=== PATIENT | female | born 1990 ===

== ENCOUNTER 2016-10-15 14:41 | Emergency (ER) | payer OTHER, SELFPAY ==
[2016-10-15 14:58] VITALS: BP 147/70; PULSE 72; RESP 20; TEMP 98.2; O2SAT 98
--- NOTE | 2016-10-15 15:45 | ED PDOC ---
HPI: General Adult Time Seen by Provider: 10/15/16 15:28 Chief Complaint (Nursing): Abdominal Pain Chief Complaint (Provider): vaginal bleeding History Per: Patient History/Exam Limitations: no limitations Additional Complaint(s): 25yo female comes to the ED stating she has not had her period for the past 2 months but has irregular menses. Reports for past 3 days she's had vaginal bleeding with occasional clots. Suspects she is . Also reports lower abdominal pain. Past Medical History Reviewed: Historical Data, Nursing Documentation, Vital Signs Vital Signs: Last Vital Signs Temp 98.2 F 10/15/16 14:56 Pulse 72 10/15/16 14:56 Resp 20 10/15/16 14:56 BP 147/70 10/15/16 14:56 Pulse Ox 98 10/15/16 18:06 - Medical History PMH: No Chronic Diseases - Surgical History Surgical History: No Surg Hx - Family History Family History: States: Unknown Family Hx - Home Medications Home Medications: Ambulatory Orders Medication Instructions Recorded Penicillin VK [Pen-Vee K] 1 tab PO Q6H #30 tab 04/25/14 Naproxen [Naprosyn] 500 mg PO Q6 #30 tablet 10/15/16 - Allergies Allergies/Adverse Reactions: Allergies Allergy/AdvReac Type Severity Reaction Status Date / Time No Known Allergies Allergy Verified 04/25/14 10:51 Review of Systems ROS Statement: Except As Marked, All Systems Reviewed And Found Negative Gastrointestinal: Positive for: Abdominal Pain Genitourinary Female: Positive for: Vaginal Bleeding Physical Exam - Reviewed Nursing Documentation Reviewed: Yes Vital Signs Reviewed: Yes - Physical Exam Appears: Positive for: Well, Non-toxic, No Acute Distress Head Exam: Positive for: ATRAUMATIC, NORMAL INSPECTION, NORMOCEPHALIC Skin: Positive for: Warm, Dry Eye Exam: Positive for: EOMI, PERRL Cardiovascular/Chest: Positive for: Regular Rate, Rhythm Respiratory: Positive for: Normal Breath Sounds. Negative for: Rales, Rhonchi, Wheezing Gastrointestinal/Abdominal: Positive for: Normal Exam, Soft. Negative for: Tenderness Extremity: Positive for: Normal ROM Neurologic/Psych: Positive for: Alert, Oriented - Laboratory Results Result Diagrams: 10/15/16 16:00 10/15/16 16:00 - ECG O2 Sat by Pulse Oximetry: 98 (RA) Pulse Ox Interpretation: Normal Medical Decision Making Medical Decision Makin: Labs, US Transvag ordered. 1700: Pt. feeling well. Told to f/u in [facility] this week for repeat exam and further testing as warranted. Return precuations given. FINDINGS: The uterus measures 7.6 x 4.0 x 5.3 centimeters. The endometrium measures 6 millimeters. The right ovary measures 2.6 x 1.8 x 2.2 centimeters. Left ovary measures 3.1 x 1.7 x 1.9 centimeters. There is no fluid the pelvis. IMPRESSION: Normal exam. Disposition - Clinical Impression Clinical Impression: Dysfunctional uterine bleeding - Disposition [facility] Disposition Time: 17:30 Condition: STABLE Prescriptions: Naproxen [Naprosyn] 500 mg PO Q6 #30 tablet Instructions: Dysfunctional Uterine Bleeding (ED) Print Language: TOGOLESE Additional Comments - Additional Comments Additional Comments: Scribe Attestation Documented by Ry Mancia, acting as a scribe for Bouchra Nina MD. Provider Scribe Attestation All medical record entries made by the Scribe were at my direction and personally dictated by me. I have reviewed the chart and agree that the record accurately reflects my personal performance of the history, physical exam, medical decision making, and the department course for this patient. I have also personally directed, reviewed, and agree with the discharge instructions and disposition.
--- NOTE | 2016-10-15 16:26 | US ---
PROCEDURE: HISTORY: VB with clots COMPARISON: TECHNIQUE: FINDINGS: The uterus measures 7.6 x 4.0 x 5.3 centimeters. The endometrium measures 6 millimeters. The right ovary measures 2.6 x 1.8 x 2.2 centimeters. Left ovary measures 3.1 x 1.7 x 1.9 centimeters. There is no fluid the pelvis. IMPRESSION: Normal exam.
[2016-10-15 16:39] LABS: HEMATOCRIT 38.2 % (34.0-47.0); MEAN CELL VOLUME 86.7 fl (81.0-99.0); MEAN CORPUSCULAR HEMOGLOBIN 30.6 pg (27.0-31.0); MEAN CORPUSCULAR HGB CONC 35.3 g/dL (33.0-37.0); RED CELL DISTRIBUTION WIDTH 12.7 % (11.5-14.5)
[2016-10-15 16:41] LABS: BLOOD UREA NITROGEN 10 mg/dl (7-17); CALCIUM 9.5 mg/dL (8.4-10.2); CARBON DIOXIDE 23 mmol/L (22-30); CHLORIDE 108 mmol/L (98-107); GFR AFRICAN-AMERICAN > 60; GLUCOSE,RANDOM 86 mg/dL (65-105); POTASSIUM 4.2 MMOL/L (3.6-5.0); SODIUM 146 mmol/l (132-148)
== END 2016-10-15 17:53 | disposition home or self-care (01) ==
LOC: H.ER 14:41
DX: N93.8 Other specified abnormal uterine and vaginal bleeding (principal); R10.30 Lower abdominal pain, unspecified

== ENCOUNTER 2017-08-01 08:17 | Emergency (ER) | payer SELFPAY ==
[2017-08-01 08:21] VITALS: BMI 31.6
[2017-08-01 08:22] VITALS: BP 142/69; PULSE 91; RESP 20; TEMP 97.3
[2017-08-01 08:36] VITALS: O2SAT 98
[2017-08-01 09:24] LABS: SQUAMOUS EPITHIAL 21 /hpf (0-5); URINE BACTERIA RARE (<OCC); URINE BILIRUBIN NEGATIVE (NEGATIVE); URINE BLOOD SMALL (NEGATIVE); URINE CLARITY CLOUDY (Clear); URINE COLOR YELLOW (YELLOW); URINE GLUCOSE (UA) NEG (Normal); URINE LEUKOCYTE ESTERASE LARGE Leu/uL (Negative); URINE NITRATE NEGATIVE (NEGATIVE); URINE PROTEIN 30 mg/dL (NEGATIVE); URINE UROBILINOGEN 0.2-1.0 mg/dL (0.2-1.0)
--- NOTE | 2017-08-01 09:38 | ED PDOC ---
HPI: Abdomen Time Seen by Provider: 08/01/17 08:32 Chief Complaint (Nursing): Abdominal Pain Chief Complaint (Provider): Abdominal Pain History Per: Patient History/Exam Limitations: no limitations Onset/Duration Of Symptoms: Other (x 1 week) Current Symptoms Are (Timing): Still Present Additional Complaint(s): Marcio is a 26 year old healthy female who presents to the emergency department complaining of right-sided abdominal pain for the past week. Patient states pain is constant with intermittent exacerbations without obvious colors. Denies nausea or vomiting. Patient states patient is eating well. No urinary complaints , fevers or chills at this time. Denies blood in urine or vaginal discharge. Last menstrual cycle was on July 13. Patient does not take any medications for it. PMD: No Family Provider Past Medical History Reviewed: Historical Data, Nursing Documentation, Vital Signs Vital Signs: Last Vital Signs Temp 97.3 F L 08/01/17 08:22 Pulse 91 H 08/01/17 08:22 Resp 20 08/01/17 08:22 BP 142/69 08/01/17 08:22 Pulse Ox 98 08/01/17 09:54 - Medical History PMH: No Chronic Diseases - Surgical History Surgical History: No Surg Hx - Family History Family History: States: Unknown Family Hx - Social History Current smoker - smoking cessation education provided: No Alcohol: None Drugs: Denies - Home Medications Home Medications: Ambulatory Orders Medication Instructions Recorded Penicillin VK [Pen-Vee K] 1 tab PO Q6H #30 tab 04/25/14 Naproxen [Naprosyn] 500 mg PO Q6 #30 tablet 10/15/16 Sulfamethoxazole/Trimethoprim 1 tab PO BID #14 tab 08/01/17 [Bactrim DS 800 mg-160 mg] - Allergies Allergies/Adverse Reactions: Allergies Allergy/AdvReac Type Severity Reaction Status Date / Time No Known Allergies Allergy Verified 08/01/17 08:31 Review of Systems ROS Statement: Except As Marked, All Systems Reviewed And Found Negative Constitutional: Negative for: Fever, Chills Cardiovascular: Negative for: Chest Pain Gastrointestinal: Positive for: Abdominal Pain (Right lower abdominal pain has mildly progressed to left side) Physical Exam - Reviewed Nursing Documentation Reviewed: Yes Vital Signs Reviewed: Yes - Physical Exam Head Exam: Positive for: ATRAUMATIC, NORMOCEPHALIC Skin: Positive for: Normal Color. Negative for: Rash Eye Exam: Positive for: Other (Sclera is normal) ENT: Positive for: Other (Mucosa is slightly dry) Neck: Positive for: Supple Cardiovascular/Chest: Positive for: Regular Rate, Rhythm Respiratory: Positive for: Normal Breath Sounds (clear) Gastrointestinal/Abdominal: Positive for: Bowel Sounds (Equal in all 4 quadrants ), Tenderness (Both lower quadrants (signficantly on right)) Neurologic/Psych: Positive for: Alert, Oriented - Laboratory Results Result Diagrams: 08/01/17 09:32 08/01/17 09:32 - ECG O2 Sat by Pulse Oximetry: 98 (RA) Pulse Ox Interpretation: Normal Medical Decision Making Medical Decision Making: Time: 08:44 Impression(s): Right Lower Quadrant Pain Differentials include, but not limited to: Gastrointestinal disease, tubal ovarian abscess Plan: - ED Urine - Urine Culture - Urinalysis Time: 09:09 - CMP - CBC - Toradol 30 mg IVP STAT - Pelvis Ultrasound Scribe Attestation: Documented by Darian Wu, acting as a scribe for Georgia Simental MD Provider Scribe Attestation: All medical record entries made by the Scribe were at my direction and personally dictated by me. I have reviewed the chart and agree that the record accurately reflects my personal performance of the history, physical exam, medical decision making, and the department course for this patient. I have also personally directed, reviewed, and agree with the discharge instructions and disposition. 11.30a - patient stable. blood test and ultrasound WNL. UA shows WBC. Will discharge. Disposition - Clinical Impression Clinical Impression: UTI (urinary tract infection) - Patient ED Disposition Is Patient to be Admitted: No Doctor Will See Patient In The: Office Counseled Patient/Family Regarding: Diagnosis, Need For Followup, Rx Given - Disposition Referrals: [facility] [Outside] [facility] [Outside] Disposition: Routine/Home Disposition Time: 11:58 Condition: STABLE Prescriptions: Sulfamethoxazole/Trimethoprim [Bactrim DS 800 mg-160 mg] 1 tab PO BID #14 tab Instructions: Urinary Tract Infection in Women (ED) Forms: [facility] (Danish) Print Language: FRENCH - POA Present On Arrival: None
[2017-08-01 09:43] LABS: BASO # 0.1 K/uL (0.0-0.2); BASO % 0.7 % (0.0-2.0); EOS # 0.2 K/uL (0.0-0.7); EOS % 2.2 % (0.0-4.0); HEMOGLOBIN 12.1 g/dL (12.0-16.0); LYMPH # 3.5 K/uL (1.0-4.3); LYMPH % 31.7 % (20.0-40.0); MEAN CELL VOLUME 86.1 fl (81.0-99.0); MEAN CORPUSCULAR HEMOGLOBIN 28.5 pg (27.0-31.0); MEAN CORPUSCULAR HGB CONC 33.1 g/dL (33.0-37.0); MEAN PLATELET VOLUME 9.1 fl (7.2-11.7); MONO # 0.9 K/uL (0.0-0.8); MONO % 7.7 % (0.0-10.0); NEUT # 6.4 K/uL (1.8-7.0); NEUT % 57.7 % (50.0-75.0); NRBC % 0.1 % (0.0-0.0); RBC 4.24 Mil/uL (3.80-5.20); RED CELL DISTRIBUTION WIDTH 12.6 % (11.5-14.5); WHITE BLOOD COUNT 11.1 K/uL (4.8-10.8)
[2017-08-01 09:51] LABS: ALBUMIN 3.8 g/dL (3.5-5.0); ALT/SGPT 21 U/L (9-52); AST/SGOT 17 U/L (14-36); BLOOD UREA NITROGEN 9 mg/dl (7-17); GFR AFRICAN-AMERICAN > 60; GFR NON-AFRICAN AMERICAN > 60
--- NOTE | 2017-08-01 10:57 | US ---
HISTORY: right lower abd pain to left x 1 week COMPARISON: None available. TECHNIQUE: Transabdominal pelvic ultrasound was performed. FINDINGS: UTERUS: Measures 8.9 x 5.3 x 4.3 cm. Anteverted, normal in size and appearance. No fibroid or other mass lesion seen. ENDOMETRIUM: Measures 6.0 mm in diameter. The central endometrial echo complex is normal in appearance. . CERVIX: No cervical abnormality identified. RIGHT OVARY: Measures 4.6 x 3.6 x 2.6 cm. No solid mass. Normal flow. LEFT OVARY: Measures 2.8 x 2.6 x 2.1 cm. No solid mass. Normal flow. FREE FLUID: There is small amount of free fluid in the cul de sac and right adnexa. OTHER FINDINGS: None. IMPRESSION: Small amount of free fluid in the pelvis which may be physiologic, otherwise unremarkable pelvic ultrasound.
== END 2017-08-01 12:15 | disposition home or self-care (01) ==
LOC: H.ER 08:17
DX: N39.0 Urinary tract infection, site not specified (principal)
CPT/HCPCS: 76856; 80053; 81003; 85025; 87086; 96374; 99283; J1885

== ENCOUNTER 2017-08-08 14:53 | Emergency (ER) | payer SELFPAY ==
[2017-08-08 14:53] VITALS: BMI 31.6
[2017-08-08 16:03] VITALS: O2SAT 99
[2017-08-08] MEDS ORDERED: Sodium Chloride 0.9% 1,000 ML IV STA (16:22)
--- NOTE | 2017-08-08 16:49 | ED PDOC ---
HPI: CCC, URI, Sore Throat Time Seen by Provider: 08/08/17 16:19 Chief Complaint (Nursing): Cough, Cold, Congestion Chief Complaint (Provider): Cough, Fever History Per: Patient History/Exam Limitations: no limitations Onset/Duration Of Symptoms: Days (x2) Current Symptoms Are (Timing): Still Present Additional Complaint(s): 26 y/o female presents to the emergency department complaining of fever and cough since yesterday with chest pain. Denies shortness of breath. Reports taking Tylenol at 8 AM and noon today without improvement of symptoms. No vomiting or diarrhea. PMD: Provider TBD Past Medical History Reviewed: Historical Data, Nursing Documentation, Vital Signs Vital Signs: Last Vital Signs Temp 98.3 F 08/08/17 19:51 Pulse 83 08/08/17 19:51 Resp 16 08/08/17 19:51 BP 123/61 08/08/17 19:51 Pulse Ox 99 08/08/17 19:51 - Medical History PMH: No Chronic Diseases - Surgical History Surgical History: No Surg Hx - Family History Family History: States: Unknown Family Hx - Social History Current smoker - smoking cessation education provided: No Alcohol: None Drugs: Denies - Home Medications Home Medications: Ambulatory Orders Medication Instructions Recorded Penicillin VK [Pen-Vee K] 1 tab PO Q6H #30 tab 04/25/14 Naproxen [Naprosyn] 500 mg PO Q6 #30 tablet 10/15/16 Sulfamethoxazole/Trimethoprim 1 tab PO BID #14 tab 08/01/17 [Bactrim DS 800 mg-160 mg] Acetaminophen [Acetaminophen Extra 2 tab PO Q6 PRN #24 tablet 08/08/17 Strength] Ibuprofen [Motrin] 600 mg PO Q8 PRN #21 tab 08/08/17 Oseltamivir [Tamiflu] 75 mg PO BID #9 cap 08/08/17 - Allergies Allergies/Adverse Reactions: Allergies Allergy/AdvReac Type Severity Reaction Status Date / Time No Known Allergies Allergy Verified 08/08/17 15:59 Review of Systems ROS Statement: Except As Marked, All Systems Reviewed And Found Negative Constitutional: Positive for: Fever Cardiovascular: Positive for: Chest Pain Respiratory: Positive for: Cough Gastrointestinal: Negative for: Vomiting, Diarrhea Physical Exam - Reviewed Nursing Documentation Reviewed: Yes Vital Signs Reviewed: Yes - Physical Exam Appears: Positive for: Non-toxic, No Acute Distress Head Exam: Positive for: ATRAUMATIC, NORMAL INSPECTION, NORMOCEPHALIC Skin: Positive for: Normal Color, Warm, Dry Eye Exam: Positive for: EOMI, Normal appearance, PERRL Cardiovascular/Chest: Positive for: Regular Rate, Rhythm Respiratory: Positive for: Normal Breath Sounds. Negative for: Rhonchi, Wheezing, Respiratory Distress Neurologic/Psych: Positive for: Alert, Oriented - Laboratory Results Result Diagrams: 08/08/17 17:08 08/08/17 19:16 Urine POC: Negative - ECG ECG Rhythm: Positive for: Sinus Tachycardia (sinus tachycardia 110bpm; no ectopy no acute changes) O2 Sat by Pulse Oximetry: 99 (RA) Pulse Ox Interpretation: Normal Medical Decision Making Medical Decision Making: Initial Impression: 26 y/o female with flu-like symptoms Time: 16:22 Initial Plan: --Urine test --EKG --BMP --Troponin I --CBC w/ differential --Motrin 800 mg PO --Tamiflu 75 mg PO --NS IV 1000 ml at 1000 mls/hr --Reevaluation Scribe Attestation: Documented by Nelda Montaño, acting as a scribe for Nas Garcia PA-C Provider Scribe Attestation: All medical record entries made by the Scribe were at my direction and personally dictated by me. I have reviewed the chart and agree that the record accurately reflects my personal performance of the history, physical exam, medical decision making, and the department course for this patient. I have also personally directed, reviewed, and agree with the discharge instructions and disposition. Disposition - Clinical Impression Clinical Impression: Influenza, Hypokalemia - Patient ED Disposition Is Patient to be Admitted: No - Disposition Disposition: Routine/Home Disposition Time: 20:19 Condition: FAIR Prescriptions: Acetaminophen [Acetaminophen Extra Strength] 2 tab PO Q6 PRN #24 tablet PRN Reason: Fever >100.4 F Ibuprofen [Motrin] 600 mg PO Q8 PRN #21 tab PRN Reason: Fever >100.4 F Oseltamivir [Tamiflu] 75 mg PO BID #9 cap Instructions: Influenza (ED) Forms: [facility] (Puerto Rican), [facility] ED School/Work Excuse Print Language: KOREAN
[2017-08-08 18:42] LABS: BASO % 0.4 % (0.0-2.0); EOS % 0.2 % (0.0-4.0); HEMOGLOBIN 11.8 g/dL (12.0-16.0); LYMPH # 0.4 K/uL (1.0-4.3); LYMPH % 6.8 % (20.0-40.0); MEAN CELL VOLUME 85.1 fl (81.0-99.0); MEAN CORPUSCULAR HEMOGLOBIN 28.7 pg (27.0-31.0); MEAN CORPUSCULAR HGB CONC 33.8 g/dL (33.0-37.0); MEAN PLATELET VOLUME 8.3 fl (7.2-11.7); MONO # 0.9 K/uL (0.0-0.8); MONO % 14.7 % (0.0-10.0); NEUT # 4.8 K/uL (1.8-7.0); NEUT % 77.9 % (50.0-75.0); PLATELET COUNT 267 K/uL (130-400); RBC 4.12 Mil/uL (3.80-5.20); RED CELL DISTRIBUTION WIDTH 12.6 % (11.5-14.5); WHITE BLOOD COUNT 6.1 K/uL (4.8-10.8)
[2017-08-08 19:36] LABS: BLOOD UREA NITROGEN 6 mg/dl (7-17); CALCIUM 9.4 mg/dL (8.4-10.2); GFR AFRICAN-AMERICAN > 60; GFR NON-AFRICAN AMERICAN > 60
[2017-08-08 19:52] VITALS: BP 123/61; PULSE 83; RESP 16; TEMP 98.3
[2017-08-08 20:08] LABS: ANISOCYTOSIS SLIGHT; BANDS 3 % (0-2); EOSINOPHIL 1 % (0-7); LYMPHOCYTE 9 % (20-50); MONOCYTE 12 % (0-10); NEUTROPHIL 75 % (42-75); PLATELET ESTIMATE NORMAL (NORMAL); POIKILOCYTOSIS SLIGHT; TOTAL CELLS COUNTED 100
[2017-08-08 20:09] LABS: HYPOCHROMIC SLIGHT; MICROCYTOSIS SLIGHT
[2017-08-08] MEDS ORDERED: Potassium Chloride 20 mEq ER Tab PO ONE (20:18)
--- NOTE | 2017-08-09 14:24 | CARD ---
APPROVED REPORT EKG Measurement Heart [id number] <Conclusion> Sinus tachycardia Otherwise normal ECG
== END 2017-08-08 22:19 | disposition home or self-care (01) ==
LOC: H.ER 14:53
DX: J11.1 Influenza due to unidentified influenza virus with other respiratory manifestations (principal); E87.6 Hypokalemia
CPT/HCPCS: 80048; 81025; 84484; 85025; 93005; 99282; J7040

== ENCOUNTER 2018-12-20 05:31 | Inpatient (IN) | payer OTHER ==
[2018-12-20 05:31] VITALS: BMI 31.6
[2018-12-20] MEDS ORDERED: Sodium Chloride 0.9% 1,000 ML IV STA (06:00)
--- NOTE | 2018-12-20 06:41 | ED PDOC ---
HPI:Nausea, Vomiting, Diarrhea Time Seen by Provider: 12/20/18 05:47 Chief Complaint (Nursing): Abdominal Pain Chief Complaint (Provider): abdominal pain, V/D History Per: Patient History/Exam Limitations: no limitations Onset/Duration Of Symptoms: Hrs (2) Current Symptoms Are (Timing): Still Present Severity: Moderate Pain Scale Rating Of: 9 Quality Of Discomfort: Cramping Associated Symptoms: Nausea, Vomiting, Diarrhea Last Bowel Movement: Today Additional Complaint(s): Patient is a 27 year old female with no PMHX who developed acute onset abdominal cramping pain with vomiting and diarrhea. She reports 3 episodes of nonbloody and nonbilious vomiting as well as 3 episodes of nonbloody diarrhea. No associated fever, cough, SOB or URINARY symptoms. Past Medical History Reviewed: Historical Data, Nursing Documentation, Vital Signs Vital Signs: Last Vital Signs Temp 98.0 F 12/20/18 05:50 Pulse 58 L 12/20/18 05:50 Resp 16 12/20/18 05:50 BP 116/72 12/20/18 05:50 Pulse Ox 100 12/20/18 05:50 Primary Care Provider: FAMILY PROVIDER,NO - Medical History PMH: No Chronic Diseases - Surgical History Surgical History: No Surg Hx - Family History Family History: States: Unknown Family Hx - Living Arrangements Living Arrangements: With Family - Social History Alcohol: None Drugs: Denies - Home Medications Home Medications: Ambulatory Orders Medication Instructions Recorded Penicillin VK [Penicillin VK Tab] 1 tab PO Q6H #30 tab 04/25/14 Naproxen [Naprosyn] 500 mg PO Q6 #30 tablet 10/15/16 Sulfamethoxazole/Trimethoprim 1 tab PO BID #14 tab 08/01/17 [Bactrim DS 800 mg-160 mg] Acetaminophen [Acetaminophen Extra 2 tab PO Q6 PRN #24 tablet 08/08/17 Strength] Ibuprofen [Motrin] 600 mg PO Q8 PRN #21 tab 08/08/17 Oseltamivir Cap [Tamiflu] 75 mg PO BID #9 cap 08/08/17 Lidocaine 2% Viscous 10 ml MM Q4H PRN #1 bottle 08/15/17 Naproxen [Naprosyn] 500 mg PO BID PRN #20 tablet 08/15/17 Penicillin VK [Penicillin VK Tab] 500 mg PO BID #20 tab 08/15/17 - Allergies Allergies/Adverse Reactions: Allergies Allergy/AdvReac Type Severity Reaction Status Date / Time No Known Allergies Allergy Verified 08/08/17 15:59 Review of Systems ROS Statement: Except As Marked, All Systems Reviewed And Found Negative Gastrointestinal: Positive for: Nausea, Vomiting, Abdominal Pain, Diarrhea Physical Exam - Reviewed Nursing Documentation Reviewed: Yes Vital Signs Reviewed: Yes - Physical Exam Appears: Positive for: Uncomfortable Head Exam: Positive for: ATRAUMATIC, NORMAL INSPECTION, NORMOCEPHALIC Skin: Positive for: Normal Color, Warm, Dry Eye Exam: Positive for: Normal appearance, EOMI, PERRL ENT: Positive for: Normal ENT Inspection Neck: Positive for: Normal, Painless ROM, Supple Respiratory: Positive for: Normal Breath Sounds. Negative for: Crackles, Rales, Rhonchi Gastrointestinal/Abdominal: Positive for: Bowel Sounds, Soft, Tenderness ((+)epigastric tenderness). Negative for: Guarding, Rebound Back: Negative for: L CVA Tenderness, R CVA Tenderness Extremity: Positive for: Normal ROM. Negative for: Tenderness Neurological/Psych: Positive for: Awake, Alert. Negative for: Motor/Sensory Deficits - Laboratory Results Result Diagrams: 12/20/18 06:41 12/20/18 06:41 - ECG O2 Sat by Pulse Oximetry: 100 Medical Decision Making Medical Decision Makin27 year old female with vomiting/diarrhea Labs, Zofran/Bentryl, IV fluids ordered Patient s/o to Dr Gamboa at 7AM Disposition - Clinical Impression Clinical Impression: Abdominal pain - Disposition Disposition: Transfer of Care Disposition Time: 07:00 Condition: FAIR Patient Signed Over To: Naty Gamboa
[2018-12-20 06:47] LABS: SQUAMOUS EPITHIAL 3 /hpf (0-5); URINE BACTERIA RARE (<OCC); URINE BILIRUBIN NEGATIVE (NEGATIVE); URINE BLOOD NEGATIVE (NEGATIVE); URINE CLARITY CLOUDY (Clear); URINE COLOR AMBER (YELLOW); URINE GLUCOSE (UA) NEG (NEGATIVE); URINE LEUKOCYTE ESTERASE MOD Leu/uL (Negative); URINE PROTEIN 30 mg/dL (NEGATIVE); URINE UROBILINOGEN 0.2-1.0 mg/dL (0.2-1.0)
[2018-12-20 06:53] LABS: ALB/GLOB RATIO 1.2 (1.0-2.1); ALBUMIN 4.1 g/dL (3.5-5.0); ALT/SGPT 13 U/L (9-52); AST/SGOT 21 U/L (14-36); BASO % 0.2 % (0.0-2.0); BLOOD UREA NITROGEN 10 mg/dl (7-17); CALCIUM 8.9 mg/dL (8.4-10.2); EOS # 0.1 K/uL (0.0-0.7); EOS % 0.9 % (0.0-4.0); GFR NON-AFRICAN AMERICAN > 60; HEMOGLOBIN 12.2 g/dL (12.0-16.0); LIPASE 75 U/L (23-300); LYMPH # 2.3 K/uL (1.0-4.3); LYMPH % 17.7 % (20.0-40.0); MEAN CELL VOLUME 89.7 fl (81.0-99.0); MEAN CORPUSCULAR HEMOGLOBIN 29.6 pg (27.0-31.0); MEAN CORPUSCULAR HGB CONC 33.1 g/dL (33.0-37.0); MEAN PLATELET VOLUME 8.8 fl (7.2-11.7); MONO % 7.6 % (0.0-10.0); NEUT # 9.5 K/uL (1.8-7.0); NEUT % 73.6 % (50.0-75.0); NRBC % 0.1 % (0.0-0.0); RBC 4.13 Mil/uL (3.80-5.20); RED CELL DISTRIBUTION WIDTH 12.7 % (11.5-14.5); WHITE BLOOD COUNT 12.8 K/uL (4.8-10.8)
--- NOTE | 2018-12-20 07:17 | ED PDOC ---
- Laboratory Results Result Diagrams: 12/20/18 06:41 12/20/18 06:41 Lab Results: Total Bilirubin 0.4 mg/dl (0.2-1.3) 12/20/18 06:41 AST 21 U/L (14-36) 12/20/18 06:41 ALT 13 U/L (9-52) 12/20/18 06:41 Alkaline Phosphatase 52 U/L (38-126) 12/20/18 06:41 Total Protein 7.4 G/DL (6.3-8.2) 12/20/18 06:41 Albumin 4.1 g/dL (3.5-5.0) 12/20/18 06:41 Globulin 3.3 gm/dL (2.2-3.9) 12/20/18 06:41 Albumin/Globulin Ratio 1.2 (1.0-2.1) 12/20/18 06:41 Lipase 75 U/L (23-300) 12/20/18 06:41 Urine Color [place] (YELLOW) 12/20/18 06:41 Urine Clarity Cloudy (Clear) 12/20/18 06:41 Urine pH 5.0 (5.0-8.0) 12/20/18 06:41 Ur Specific [place] 1.027 (1.003-1.030) 12/20/18 06:41 Urine Protein 30 mg/dL (NEGATIVE) 12/20/18 06:41 Urine Glucose (UA) Neg mg/dL (NEGATIVE) 12/20/18 06:41 Urine Ketones 20 mg/dL (NEGATIVE) 12/20/18 06:41 Urine Blood Negative (NEGATIVE) 12/20/18 06:41 Urine Nitrate Negative (NEGATIVE) 12/20/18 06:41 Urine Bilirubin Negative (NEGATIVE) 12/20/18 06:41 Urine Urobilinogen 0.2-1.0 mg/dL (0.2-1.0) 12/20/18 06:41 Ur Leukocyte Esterase Mod Renzo/uL (Negative) 12/20/18 06:41 Urine Microscopic WBC 5 /hpf (0-5) 12/20/18 06:41 Ur Squamous Epith Cells 3 /hpf (0-5) 12/20/18 06:41 Urine Bacteria Rare (<OCC) 12/20/18 06:41 - ECG O2 Sat by Pulse Oximetry: 100 Medical Decision Making Medical Decision Makin: Patient signed out to this provider. Pending IV fluids, reevaluation, and final disposition. Disposition - Clinical Impression Clinical Impression: Gastroenteritis - Disposition Condition: FAIR Forms: [email or web address] (Welsh)
[2018-12-20] MEDS ORDERED: Iohexol 300 100 ML IJ ONE (08:58)
[2018-12-20] MEDS ORDERED: Sodium Chloride 0.9% 50 ML IV ONE (08:58)
[2018-12-20] MEDS ORDERED: Piperacillin/Tazobact 3.375 GM in Sodium Chloride 0.9% 100 ML IVPB STA (10:14)
--- NOTE | 2018-12-20 10:17 | CT ---
Date of service: 12/20/2018 PROCEDURE: CT Abdomen and Pelvis with contrast HISTORY: abdominal pain COMPARISON: None. TECHNIQUE: Contrast dose: Omnipaque 300, 95 cc Radiation dose: Total exam DLP = 650.13 mGy-cm. This CT exam was performed using one or more of the following dose reduction techniques: Automated exposure control, adjustment of the mA and/or kV according to patient size, and/or use of iterative reconstruction technique. FINDINGS: LOWER THORAX: Unremarkable. LIVER: Mildly diminished attenuation throughout the liver is compatible with diffuse hepatic steatosis is appreciated without underlying mass appreciable or intrahepatic biliary dilatation. GALLBLADDER AND BILE DUCTS: Unremarkable. PANCREAS: Unremarkable. No gross lesion or ductal dilatation. SPLEEN: Unremarkable. ADRENALS: Unremarkable. No mass. KIDNEYS AND URETERS: Unremarkable. No hydronephrosis. No solid mass. VASCULATURE: Unremarkable. No aortic aneurysm. No aortic atherosclerotic calcification or mural plaque present. BOWEL: The stomach is collapsed not well evaluated. Evaluation of the gastrointestinal tract is limited due to the lack of oral contrast administration. No bowel obstruction is identified however there is thickening of large bowel at least including the distal ascending through sigmoid colon segment suspicious for extensive segmental colitis with limited pericolic reaction associated. No abscess or free intrarenal gas or other sign of bowel perforation. Further clinical correlation is recommended. APPENDIX: Further, the appendix is dilated to 1.5 cm with an appendicular left identified at its base. Limited periappendiceal reaction is noted and although there is not prominent mural thickening, the findings compatible with unruptured appendicitis. PERITONEUM: Unremarkable. No free fluid. No free air. LYMPH NODES: Unremarkable. No enlarged lymph nodes. BLADDER: Unremarkable. REPRODUCTIVE: 1.7 cm right adnexal cyst. BONES: No acute fracture. OTHER FINDINGS: None. IMPRESSION: 1. Under operative appendicitis identified. 2. Segmental colitis is also identified throughout the majority colon from the distal ascending through at least sigmoid segments, nearly pancolitis. No ascites or abscess. Limited pericolic reaction is associated primarily transverse and left colonic segments. 3. 1.7 cm right adnexal cyst. 4. Hepatic steatosis. Findings discussed with Bee with written down and read back verification 12/20/2018, 10:05 a.m.
[2018-12-20] MEDS ORDERED: Piperacillin/Tazobact 3.375 gm Inj IVPB ONE (10:24)
[2018-12-20] MEDS ORDERED: Lidocaine 4% (Laryng-O-Jet) Kit MM ONE (10:50)
[2018-12-20] MEDS ORDERED: Sevoflurane - Inhalation Anesthetic Liq (250 ml) ONE (10:50)
--- NOTE | 2018-12-20 11:05 | CP.PCM.HP ---
<Brian Stack - Last Filed: 12/20/18 15:17> History of Present Illness - History of Present Illness History of Present Illness: 27 yo female with no pmh present to ED due to abd pain, with nausea, and vomiting 6x since yesterday. Patient have lost appetite, Otherwise patient have no complains. ROS negative except mentioned PCP: none Medication: none PMH : none PSH None Social denies smoke, drink occasionally no drug use. ED course VItals Stable CT scan: + for appendicitis patient admitted for laparoscopic appendectomy at 11:30 Present on Admission - Present on Admission Any Indicators Present on Admission: No Past Patient History - Past Social History Alcohol: None Drugs: Denies - PSYCHIATRIC Hx Psychophysiologic Disorder: No Hx Substance Use: No - SURGICAL HISTORY Hx Surgeries: No - ANESTHESIA Hx Anesthesia: Yes (epidural) Hx Anesthesia Reactions: No Hx Malignant Hyperthermia: No Meds Allergies/Adverse Reactions: Allergies Allergy/AdvReac Type Severity Reaction Status Date / Time No Known Allergies Allergy Verified 08/08/17 15:59 Physical Exam - Constitutional Appears: Well, Non-toxic, No Acute Distress - Head Exam Head Exam: ATRAUMATIC, NORMAL INSPECTION, NORMOCEPHALIC - Eye Exam Eye Exam: EOMI, Normal appearance, PERRL Pupil Exam: NORMAL ACCOMODATION, PERRL - ENT Exam ENT Exam: Mucous Membranes Moist, Normal Exam - Neck Exam Neck exam: Positive for: Normal Inspection - Respiratory Exam Respiratory Exam: Clear to Auscultation Bilateral, NORMAL BREATHING PATTERN - Cardiovascular Exam Cardiovascular Exam: REGULAR RHYTHM, +S1, +S2 - GI/Abdominal Exam GI & Abdominal Exam: Normal Bowel Sounds Additional comments: generlized tenderness, most pain noted on RLQ - Extremities Exam Extremities exam: Positive for: normal inspection - Back Exam Back exam: NORMAL INSPECTION - Neurological Exam Neurological exam: Alert, Normal Gait, Oriented x3, Reflexes Normal - Psychiatric Exam Psychiatric exam: Normal Affect, Normal Mood - Skin Skin Exam: Dry, Intact, Normal Color, Warm Results - Vital Signs Recent Vital Signs: Last Vital Signs Temp 98.0 F 12/20/18 05:50 Pulse 58 L 12/20/18 05:50 Resp 16 12/20/18 05:50 BP 116/72 12/20/18 05:50 Pulse Ox 100 12/20/18 10:50 - Labs Result Diagrams: 12/20/18 06:41 12/20/18 06:41 Labs: Laboratory Results - last 24 hr 12/20/18 12/20/18 12/20/18 06:41 06:41 06:41 WBC 12.8 H RBC 4.13 Hgb 12.2 Hct 37.0 MCV 89.7 D MCH 29.6 MCHC 33.1 RDW 12.7 Plt Count 287 MPV 8.8 Neut % (Auto) 73.6 Lymph % (Auto) 17.7 L Wright % (Auto) 7.6 Eos % (Auto) 0.9 Baso % (Auto) 0.2 Neut # (Auto) 9.5 H Lymph # (Auto) 2.3 Wright # (Auto) 1.0 H Eos # (Auto) 0.1 Baso # (Auto) 0.0 Sodium 136 Potassium 3.7 Chloride 102 Carbon Dioxide 23 Anion Gap 15 BUN 10 Creatinine 0.6 L Est GFR ( Amer) > 60 Est GFR (Non-Af Amer) > 60 Random Glucose 103 Calcium 8.9 Total Bilirubin 0.4 AST 21 ALT 13 Alkaline Phosphatase 52 Total Protein 7.4 Albumin 4.1 Globulin 3.3 Albumin/Globulin Ratio 1.2 Lipase 75 Urine Color Rosana Urine Clarity Cloudy Urine pH 5.0 Ur Specific [place] 1.027 Urine Protein 30 Urine Glucose (UA) Neg Urine Ketones 20 Urine Blood Negative Urine Nitrate Negative Urine Bilirubin Negative Urine Urobilinogen 0.2-1.0 Ur Leukocyte Esterase Mod Urine Microscopic WBC 5 Ur Squamous Epith Cells 3 Urine Bacteria Rare Assessment & Plan - Assessment and Plan (Free Text) Assessment: 27 yo female with No pmh present with abd pain, admitted for laprascopic appendectomy Appendicitis Ct + for appendicites NPO Patient received a 1 dose zosyn preoperation Will start on zosyn q6h after surgery Patient will be sent to OR For laprascopic appendectomy F/U surgery recommendation DVT SCd for now <Carter Corey D - Last Filed: 12/20/18 17:30> Results - Vital Signs Recent Vital Signs: Last Vital Signs Temp 98 F 12/20/18 16:02 Pulse 55 L 12/20/18 16:02 Resp 19 12/20/18 16:02 BP 103/61 12/20/18 16:02 Pulse Ox 98 12/20/18 16:02 - Labs Result Diagrams: 12/20/18 06:41 12/20/18 06:41 Labs: Laboratory Results - last 24 hr 12/20/18 12/20/18 12/20/18 06:41 06:41 06:41 WBC 12.8 H RBC 4.13 Hgb 12.2 Hct 37.0 MCV 89.7 D MCH 29.6 MCHC 33.1 RDW 12.7 Plt Count 287 MPV 8.8 Neut % (Auto) 73.6 Lymph % (Auto) 17.7 L Wright % (Auto) 7.6 Eos % (Auto) 0.9 Baso % (Auto) 0.2 Neut # (Auto) 9.5 H Lymph # (Auto) 2.3 Wright # (Auto) 1.0 H Eos # (Auto) 0.1 Baso # (Auto) 0.0 PT INR APTT Sodium 136 Potassium 3.7 Chloride 102 Carbon Dioxide 23 Anion Gap 15 BUN 10 Creatinine 0.6 L Est GFR ( Amer) > 60 Est GFR (Non-Af Amer) > 60 Random Glucose 103 Calcium 8.9 Total Bilirubin 0.4 AST 21 ALT 13 Alkaline Phosphatase 52 Total Protein 7.4 Albumin 4.1 Globulin 3.3 Albumin/Globulin Ratio 1.2 Lipase 75 Urine Color Rosana Urine Clarity Cloudy Urine pH 5.0 Ur Specific [place] 1.027 Urine Protein 30 Urine Glucose (UA) Neg Urine Ketones 20 Urine Blood Negative Urine Nitrate Negative Urine Bilirubin Negative Urine Urobilinogen 0.2-1.0 Ur Leukocyte Esterase Mod Urine Microscopic WBC 5 Ur Squamous Epith Cells 3 Urine Bacteria Rare Blood Type Blood Type Confirm Antibody Screen BBK History Checked 12/20/18 12/20/18 12/20/18 11:00 11:00 11:00 WBC RBC Hgb Hct MCV MCH MCHC RDW Plt Count MPV Neut % (Auto) Lymph % (Auto) Wright % (Auto) Eos % (Auto) Baso % (Auto) Neut # (Auto) Lymph # (Auto) Wright # (Auto) Eos # (Auto) Baso # (Auto) PT Cancelled 12.9 INR 1.1 APTT 32.4 Sodium Potassium Chloride Carbon Dioxide Anion Gap BUN Creatinine Est GFR ( Amer) Est GFR (Non-Af Amer) Random Glucose Calcium Total Bilirubin AST ALT Alkaline Phosphatase Total Protein Albumin Globulin Albumin/Globulin Ratio Lipase Urine Color Urine Clarity Urine pH Ur Specific [place] Urine Protein Urine Glucose (UA) Urine Ketones Urine Blood Urine Nitrate Urine Bilirubin Urine Urobilinogen Ur Leukocyte Esterase Urine Microscopic WBC Ur Squamous Epith Cells Urine Bacteria Blood Type A POSITIVE Blood Type Confirm Antibody Screen Negative BBK History Checked No verified bt 12/20/18 13:41 WBC RBC Hgb Hct MCV MCH MCHC RDW Plt Count MPV Neut % (Auto) Lymph % (Auto) Wright % (Auto) Eos % (Auto) Baso % (Auto) Neut # (Auto) Lymph # (Auto) Wright # (Auto) Eos # (Auto) Baso # (Auto) PT INR APTT Sodium Potassium Chloride Carbon Dioxide Anion Gap BUN Creatinine Est GFR ( Amer) Est GFR (Non-Af Amer) Random Glucose Calcium Total Bilirubin AST ALT Alkaline Phosphatase Total Protein Albumin Globulin Albumin/Globulin Ratio Lipase Urine Color Urine Clarity Urine pH Ur Specific [place] Urine Protein Urine Glucose (UA) Urine Ketones Urine Blood Urine Nitrate Urine Bilirubin Urine Urobilinogen Ur Leukocyte Esterase Urine Microscopic WBC Ur Squamous Epith Cells Urine Bacteria Blood Type Blood Type Confirm A POSITIVE Antibody Screen BBK History Checked Attending/Attestation - Attestation I have personally seen and examined this patient.: Yes I have fully participated in the care of the patient.: Yes I have reviewed all pertinent clinical information: Yes Notes (Text): 12/20/18 17:29 Patient seen and examined with resident. Case discussed and agreed with assessment and plan of management
--- NOTE | 2018-12-20 11:06 | CP.PCM.CON ---
History of Present Illness - History of Present Illness History of Present Illness: Surgery H&P for Dr. Harvey Consult: Appendicitis HPI: 27 year old female, no significant past medical history, presents to [facility] with diffuse upper abdominal pain that started yesterday w/ nausea and has worsened this morning. Describes the pain as cramping and constant in nature. Patient states she has vomiting 6 times and continues to experience nausea. Denies any appetite. No known inciting factor. Eating makes the symptoms worse. Pain medication in ED helped improve symptoms. Patient denies fever or chills. Endorses diarrhea, non-bloody. LMP was last month. Denies SOB, CP, or urinary symptoms. PMH: Denies PSH: Denies FH: Noncontributory SH: Denies tobacco, alcohol, or drugs use ALL: NKDA Meds: See MAR Review of Systems - Constitutional Constitutional: absent: Chills, Fever - EENT Eyes: absent: Blurred Vision, Change in Vision Nose/Mouth/Throat: absent: Nasal Congestion, Nasal Discharge - Cardiovascular Cardiovascular: absent: Chest Pain, Dyspnea - Respiratory Respiratory: absent: Cough, Dyspnea - Gastrointestinal Gastrointestinal: Abdominal Pain, Diarrhea, Nausea, Vomiting - Genitourinary Genitourinary: absent: Difficulty Urinating, Dysuria - Musculoskeletal Musculoskeletal: absent: Back Pain, Neck Pain - Integumentary Integumentary: absent: Bleeding Lesions, Changing Lesions - Neurological Neurological: absent: Confusion, Numbness - Psychiatric Psychiatric: absent: Anxiety, Depression Past Patient History - Past Social History Alcohol: None Drugs: Denies - PSYCHIATRIC Hx Psychophysiologic Disorder: No Hx Substance Use: No - SURGICAL HISTORY Hx Surgeries: No - ANESTHESIA Hx Anesthesia: Yes (epidural) Hx Anesthesia Reactions: No Hx Malignant Hyperthermia: No Meds Allergies/Adverse Reactions: Allergies Allergy/AdvReac Type Severity Reaction Status Date / Time No Known Allergies Allergy Verified 08/08/17 15:59 - Medications Medications: Current Medications Piperacillin Sod/Tazobactam (Sod 3.375 gm/ Sodium Chloride) 100 mls @ 100 mls/hr IVPB STAT STA; Protocol Stop: 12/20/18 11:13 Last Admin: 12/20/18 10:25 Dose: 100 mls/hr Physical Exam - Constitutional Appears: Well, Non-toxic, No Acute Distress - Head Exam Head Exam: ATRAUMATIC, NORMAL INSPECTION, NORMOCEPHALIC - Eye Exam Eye Exam: EOMI - ENT Exam ENT Exam: Mucous Membranes Dry - Respiratory Exam Respiratory Exam: NORMAL BREATHING PATTERN. absent: Wheezes, Respiratory Distress - Cardiovascular Exam Cardiovascular Exam: REGULAR RHYTHM, +S1, +S2 - GI/Abdominal Exam GI & Abdominal Exam: Normal Bowel Sounds, Soft, Tenderness. absent: Distended, Guarding, Rebound - Extremities Exam Extremities exam: Positive for: normal inspection, pedal pulses present - Neurological Exam Neurological exam: Alert, Oriented x3 - Psychiatric Exam Psychiatric exam: Normal Affect, Normal Mood - Skin Skin Exam: Dry, Intact, Normal Color, Warm Results - Vital Signs Recent Vital Signs: Last Vital Signs Temp 98.0 F 12/20/18 05:50 Pulse 58 L 12/20/18 05:50 Resp 16 12/20/18 05:50 BP 116/72 12/20/18 05:50 Pulse Ox 100 12/20/18 10:50 - Labs Result Diagrams: 12/20/18 06:41 12/20/18 06:41 Labs: Laboratory Results - last 24 hr 12/20/18 12/20/18 12/20/18 06:41 06:41 06:41 WBC 12.8 H RBC 4.13 Hgb 12.2 Hct 37.0 MCV 89.7 D MCH 29.6 MCHC 33.1 RDW 12.7 Plt Count 287 MPV 8.8 Neut % (Auto) 73.6 Lymph % (Auto) 17.7 L [place] % (Auto) 7.6 Eos % (Auto) 0.9 Baso % (Auto) 0.2 Neut # (Auto) 9.5 H Lymph # (Auto) 2.3 [place] # (Auto) 1.0 H Eos # (Auto) 0.1 Baso # (Auto) 0.0 Sodium 136 Potassium 3.7 Chloride 102 Carbon Dioxide 23 Anion Gap 15 BUN 10 Creatinine 0.6 L Est GFR ( Amer) > 60 Est GFR (Non-Af Amer) > 60 Random Glucose 103 Calcium 8.9 Total Bilirubin 0.4 AST 21 ALT 13 Alkaline Phosphatase 52 Total Protein 7.4 Albumin 4.1 Globulin 3.3 Albumin/Globulin Ratio 1.2 Lipase 75 Urine Color Rosana Urine Clarity Cloudy Urine pH 5.0 Ur Specific [place] 1.027 Urine Protein 30 Urine Glucose (UA) Neg Urine Ketones 20 Urine Blood Negative Urine Nitrate Negative Urine Bilirubin Negative Urine Urobilinogen 0.2-1.0 Ur Leukocyte Esterase Mod Urine Microscopic WBC 5 Ur Squamous Epith Cells 3 Urine Bacteria Rare Assessment & Plan - Assessment and Plan (Free Text) Assessment: 27F w/ acute appendicitis Plan: NPO IVF IV Abx Antiemetics and analgesics PRN Proceed to OR today CXR for preop Labs, T&S, coags Consent will be obtained by attending D/w Dr. Avila PGY1
[2018-12-20] MEDS ORDERED: Bupivacaine 0.5% Inj(30mL) ONE (11:20)
[2018-12-20] MEDS ORDERED: Midazolam 2 MG/2 ML VIAL ONE (11:29)
[2018-12-20] MEDS ORDERED: Propofol 10 mg/ml Inj (20 ML) ONE (11:29)
[2018-12-20] MEDS ORDERED: Rocuronium 10 mg/ml (5 ml) ONE (11:30)
[2018-12-20] MEDS ORDERED: Succinylcholine 200 mg/10 ml Inj IV ONE (11:30)
[2018-12-20] MEDS ORDERED: Dexamethasone 4 mg/1 ml ONE (11:45)
[2018-12-20 12:06] LABS: INR 1.1; PROTHROMBIN TIME 12.9 Seconds (9.8-13.1)
[2018-12-20] MEDS ORDERED: Neostigmine 1:1000 (1 mg/ml) Inj ONE (12:11)
[2018-12-20] MEDS ORDERED: Lactated Ringer's 1,000 ML IV ONE (12:14)
--- NOTE | 2018-12-20 12:35 | PCM.SURG1 ---
Surgeon's Initial Post Op Note - Surgeon's Notes Surgeon: Dr. Harvey Hat Steamer: Dr. Brown Type of Anesthesia: General Endo, Local Anesthesia Administered By: Dr. Galvan Pre-Operative Diagnosis: acute appendicitis Operative Findings: acutely inflamed, enlarged appendix Post-Operative Diagnosis: same Operation Performed: laparoscopic appendectomy Specimen/Specimens Removed: appendix Estimated Blood Loss: EBL {In ML}: 2 Blood Products Given: N/A Drains Used: No Drains Post-Op Condition: Good Date of Surgery/Procedure: 12/20/18 Time of Surgery/Procedure: 12:35
[2018-12-20] MEDS ORDERED: HYDROmorphone 0.5 mg/0.5 ml ISec IVP PRN (12:36)
[2018-12-20] MEDS ORDERED: oxyCODONE 5 mg Immediate Release Tab PO PRN (12:36)
[2018-12-20] MEDS ORDERED: Dexamethasone 4 mg/1 ml IVP PRN (12:36)
[2018-12-20] MEDS: Lactated Ringer's 1,000 ML IV SCH ×4 (13:02→22:54)
--- NOTE | 2018-12-20 15:22 | RAD ---
Date of service: 12/20/2018 PROCEDURE: CHEST RADIOGRAPH, 1 VIEW HISTORY: preop COMPARISON: 08/15/2017. Two-view chest FINDINGS: LUNGS: Clear. PLEURA: No pneumothorax or pleural fluid seen. CARDIOVASCULAR: No aortic atherosclerotic calcification present. Normal. OSSEOUS STRUCTURES: No significant abnormalities. VISUALIZED UPPER ABDOMEN: Normal. OTHER FINDINGS: None. IMPRESSION: No active disease.No significant interval change compared to the prior examination(s).
--- NOTE | 2018-12-20 15:38 | CP.PCM.PN ---
Subjective - Date & Time of Evaluation Date of Evaluation: 12/20/18 Time of Evaluation: 15:30 - Subjective Subjective: Pt seen and examined at bedside. S/P appendectomy. Patient is recovering well. sipping water. No complication during surgery Will place on Zosyn 2 more dose, and will be discharge home on 12/21/18 Objective - Vital Signs/Intake and Output Vital Signs (last 24 hours): Temp Pulse Resp BP Pulse Ox 98.0 F 58 L 18 107/58 L 96 12/20/18 14:05 12/20/18 14:05 12/20/18 14:05 12/20/18 14:05 12/20/18 14:05 Intake and Output: 12/20/18 12/20/18 06:59 18:59 Intake Total 1000 Balance 1000 - Medications Medications: Current Medications Acetaminophen (Tylenol 325mg Tab) 650 mg PO Q6 PRN PRN Reason: Fever >100.4 F Lactated Ringer's (Lactated Ringer's) 1,000 mls @ 125 mls/hr IV .Q8H JENNIFER Last Admin: 12/20/18 13:30 Dose: 0 mls Piperacillin Sod/Tazobactam (Sod 3.375 gm/ Sodium Chloride) 100 mls @ 100 mls/hr IVPB Q6 JENNIFER; Protocol Morphine Sulfate (Morphine) 2 mg IVP Q6 PRN PRN Reason: Pain, moderate (4-7) Last Admin: 12/20/18 14:51 Dose: 2 mg Ondansetron HCl (Zofran Inj) 4 mg IVP Q6 PRN PRN Reason: Nausea/Vomiting Oxycodone HCl (Oxycodone Immediate Release Tab) 5 mg PO Q6 PRN PRN Reason: Pain, severe (8-10) Tramadol HCl (Ultram) 50 mg PO Q6 PRN PRN Reason: Pain, moderate (4-7) - Labs Labs: 12/20/18 06:41 12/20/18 06:41 PT 12.9 Seconds (9.8-13.1) 12/20/18 11:00 INR 1.1 12/20/18 11:00 APTT 32.4 Seconds (25.6-37.1) 12/20/18 11:00 - Constitutional Appears: Well, Non-toxic, No Acute Distress - Head Exam Head Exam: ATRAUMATIC, NORMAL INSPECTION, NORMOCEPHALIC - Eye Exam Eye Exam: EOMI, Normal appearance, PERRL Pupil Exam: NORMAL ACCOMODATION, PERRL - ENT Exam ENT Exam: Mucous Membranes Moist, Normal Exam - Neck Exam Neck Exam: Full ROM, Normal Inspection - Respiratory Exam Respiratory Exam: Clear to Ausculation Bilateral, NORMAL BREATHING PATTERN - Cardiovascular Exam Cardiovascular Exam: REGULAR RHYTHM - GI/Abdominal Exam GI & Abdominal Exam: Soft, Normal Bowel Sounds Additional comments: tender to touch due to surgical incisions, no drain noted. - Extremities Exam Extremities Exam: Full ROM, Normal Capillary Refill, Normal Inspection - Back Exam Back Exam: NORMAL INSPECTION - Neurological Exam Neurological Exam: Alert, Awake, Oriented x3 - Psychiatric Exam Psychiatric exam: Normal Affect, Normal Mood - Skin Skin Exam: Dry, Intact, Normal Color, Warm Assessment and Plan - Assessment and Plan (Free Text) Assessment: 27 yo female s/p appendectomy day 0 vitals stable no complication during surgery patient recovering well Pain controlled with medication PE wnl WIll receive 2 dose of Zosyn post-op Advance diet as tolerated use incentive spirometry Discharge home tomorrow morning DVT prophylaxis SCD
[2018-12-20] MEDS: Piperacillin/Tazobact 3.375 GM in Sodium Chloride 0.9% 100 ML IVPB SCH ×2 (17:33→21:47)
--- NOTE | 2018-12-21 02:47 | OP ---
PROCEDURE DATE: 12/20/2018 SURGEON: Umair Oquendo MD BROOM HANDLE DIPPER: Bals Brown DO, PGY-1 ANESTHESIOLOGIST: Emerson Galvan MD ANESTHESIA: General. PREOPERATIVE DIAGNOSIS: Acute nonperforated appendicitis. POSTOPERATIVE DIAGNOSIS: Acute nonperforated appendicitis. ESTIMATED BLOOD LOSS: 5 mL. COMPLICATIONS: None. INDICATIONS: This is a 27-year-old female who presented with diffuse abdominal pain, nausea, and vomiting for the past 2 days. Appropriate workup including CT scans, labs, and physical exam were consistent with acute appendicitis. Appendectomy was indicated and recommended at this time with the patient medically optimized. test was negative. The risks, benefits, and surgery rational were explained and informed consent was obtained with nurse at bedside as witness. DESCRIPTION OF PROCEDURE: The patient was taken to the operating room and placed on the table in supine position with the left arm tucked in. Time-out was performed to verify correct patient, procedure, site and additional clinical information prior to beginning the procedure. The patient received Zosyn preoperatively. General anesthesia was initiated and the patient was intubated. The patient was then prepped and draped in a sterile fashion. Veress needle was inserted at the umbilicus and the abdomen was insufflated with CO2 to a pressure of 15 mmHg to achieve pneumoperitoneum. The patient tolerated the insufflation well. A periumbilical incision was made and a 5 mm Visi-Port trocar was then inserted at the umbilicus. Laparoscope was inserted under direct vision and the abdomen was inspected to ensure no injuries occurred with the initial port placement. Additional ports were placed as follows, a 5 mm port at the left lower quadrant and a 12 mm port at the left middle quadrant, lateral to the rectus muscle. The table was then placed in a reverse Trendelenburg with the right side up. Upon entrance into the abdominal cavity, the appendix was visualized in the right pericolic gutter. Bowel and cecum were brushed away and the appendix was grasped and elevated. Using a linear cutting stapler the appendix and mesoappendix were taken together using the white load. The appendix was then placed in an endoscopic retrieval bag and removed through 12 mm port site. The appendiceal stump was then inspected, no bleeding was noted. Hemostasis was assured. No other pathology was identified. The 12 mm port was then removed with the appendix. The remaining ports were removed with no bleeding noted. The 12 mm port was closed with 3-0 Vicryl. All port sites were closed subcutaneously with 4-0 Monocryl and Dermabond. The operative field was cleaned and dried. No intraoperative complications were encountered. All instruments, sharps, and sponge counts were correct. The patient was extubated in the OR and transported to the PACU in stable condition. Blas Brown D.O. Umair Hightower MD MTDChacho
[2018-12-21] MEDS: Lactated Ringer's 1,000 ML IV SCH (03:25)
[2018-12-21] MEDS: Piperacillin/Tazobact 3.375 GM in Sodium Chloride 0.9% 100 ML IVPB SCH (03:26)
[2018-12-21 08:20] VITALS: BP 99/62; PULSE 55; RESP 18; TEMP 98.1; O2SAT 99
--- NOTE | 2018-12-21 10:24 | CP.PCM.PN ---
Subjective - Date & Time of Evaluation Date of Evaluation: 12/21/18 Time of Evaluation: 06:00 - Subjective Subjective: General Surgery Note for Dr. Harvey Patient seen and examined at bedside. No acute event. She denies abd pain. Patinet tolerating diet. She is passing flatus. Denies fever/chills or nausea/vomiting. Patient requesting to go home. Objective - Vital Signs/Intake and Output Vital Signs (last 24 hours): Temp Pulse Resp BP Pulse Ox 98.1 F 55 L 18 99/62 L 99 12/21/18 08:20 12/21/18 08:20 12/21/18 08:20 12/21/18 08:20 12/21/18 08:20 - Medications Medications: Current Medications Acetaminophen (Tylenol 325mg Tab) 650 mg PO Q6 PRN PRN Reason: Fever >100.4 F Lactated Ringer's (Lactated Ringer's) 1,000 mls @ 125 mls/hr IV .Q8H JENNIFER Last Admin: 12/21/18 03:25 Dose: Not Given Ondansetron HCl (Zofran Inj) 4 mg IVP Q6 PRN PRN Reason: Nausea/Vomiting Oxycodone HCl (Oxycodone Immediate Release Tab) 5 mg PO Q6 PRN PRN Reason: Pain, severe (8-10) Tramadol HCl (Ultram) 50 mg PO Q6 PRN PRN Reason: Pain, moderate (4-7) - Labs Labs: 12/20/18 06:41 12/20/18 06:41 PT 12.9 Seconds (9.8-13.1) 12/20/18 11:00 INR 1.1 12/20/18 11:00 APTT 32.4 Seconds (25.6-37.1) 12/20/18 11:00 - Constitutional Appears: No Acute Distress - Head Exam Head Exam: ATRAUMATIC, NORMOCEPHALIC - Eye Exam Eye Exam: EOMI, Normal appearance Pupil Exam: PERRL - ENT Exam ENT Exam: Mucous Membranes Moist - Respiratory Exam Respiratory Exam: NORMAL BREATHING PATTERN - Cardiovascular Exam Cardiovascular Exam: REGULAR RHYTHM - GI/Abdominal Exam GI & Abdominal Exam: Rigid, Soft, Normal Bowel Sounds. absent: Distended, Firm, Guarding, Rebound - Extremities Exam Extremities Exam: Normal Capillary Refill - Back Exam Back Exam: absent: CVA tenderness (L), CVA tenderness (R) - Neurological Exam Neurological Exam: Alert, Awake, Oriented x3 - Psychiatric Exam Psychiatric exam: Normal Affect, Normal Mood - Skin Skin Exam: Dry, Intact, Normal Color, Warm Assessment and Plan - Assessment and Plan (Free Text) Assessment: 27 F s/p laparoscopic appendectomy POD#1 Plan: reg diet patient clear for discharge from surgical standpoint f/u with Dr. Harvey as outpatient in office within 1 week Call the office for any issues Discussed with Dr. Mackenzie PGY2
--- NOTE | 2018-12-21 11:26 | CP.PCM.DIS ---
Provider - Provider Date of Admission: 12/20/18 10:27 Attending physician: Carter Corey MD Consults: 12/20/18 10:28 Surgery [General Surgery Consult] Stat Comment: Consulting Provider: Umair Hernandez Consulting Physician: Umair Hernandez Reason for Consult: acute appendicitis Time Spent in preparation of Discharge (in minutes): 25 Diagnosis - Discharge Diagnosis (1) Appendicitis Status: Acute Comment: 1st day post op. tolerated food intake and able to pass gas Hospital Course - Lab Results Lab Results: Most Recent Lab Values WBC 12.8 K/uL (4.8-10.8) H 12/20/18 06:41 RBC 4.13 Mil/uL (3.80-5.20) 12/20/18 06:41 Hgb 12.2 g/dL (12.0-16.0) 12/20/18 06:41 Hct 37.0 % (34.0-47.0) 12/20/18 06:41 MCV 89.7 fl (81.0-99.0) D 12/20/18 06:41 MCH 29.6 pg (27.0-31.0) 12/20/18 06:41 MCHC 33.1 g/dL (33.0-37.0) 12/20/18 06:41 RDW 12.7 % (11.5-14.5) 12/20/18 06:41 Plt Count 287 K/uL (130-400) 12/20/18 06:41 MPV 8.8 fl (7.2-11.7) 12/20/18 06:41 Neut % (Auto) 73.6 % (50.0-75.0) 12/20/18 06:41 Lymph % (Auto) 17.7 % (20.0-40.0) L 12/20/18 06:41 [place] % (Auto) 7.6 % (0.0-10.0) 12/20/18 06:41 Eos % (Auto) 0.9 % (0.0-4.0) 12/20/18 06:41 Baso % (Auto) 0.2 % (0.0-2.0) 12/20/18 06:41 Neut # (Auto) 9.5 K/uL (1.8-7.0) H 12/20/18 06:41 Lymph # (Auto) 2.3 K/uL (1.0-4.3) 12/20/18 06:41 [place] # (Auto) 1.0 K/uL (0.0-0.8) H 12/20/18 06:41 Eos # (Auto) 0.1 K/uL (0.0-0.7) 12/20/18 06:41 Baso # (Auto) 0.0 K/uL (0.0-0.2) 12/20/18 06:41 PT 12.9 Seconds (9.8-13.1) 12/20/18 11:00 INR 1.1 12/20/18 11:00 APTT 32.4 Seconds (25.6-37.1) 12/20/18 11:00 Sodium 136 mmol/l (132-148) 12/20/18 06:41 Potassium 3.7 MMOL/L (3.6-5.0) 12/20/18 06:41 Chloride 102 mmol/L (98-107) 12/20/18 06:41 Carbon Dioxide 23 mmol/L (22-30) 12/20/18 06:41 Anion Gap 15 (10-20) 12/20/18 06:41 BUN 10 mg/dl (7-17) 12/20/18 06:41 Creatinine 0.6 mg/dl (0.7-1.2) L 12/20/18 06:41 Est GFR ( Amer) > 60 12/20/18 06:41 Est GFR (Non-Af Amer) > 60 12/20/18 06:41 Random Glucose 103 mg/dL (65-105) 12/20/18 06:41 Calcium 8.9 mg/dL (8.4-10.2) 12/20/18 06:41 Total Bilirubin 0.4 mg/dl (0.2-1.3) 12/20/18 06:41 AST 21 U/L (14-36) 12/20/18 06:41 ALT 13 U/L (9-52) 12/20/18 06:41 Alkaline Phosphatase 52 U/L (38-126) 12/20/18 06:41 Total Protein 7.4 G/DL (6.3-8.2) 12/20/18 06:41 Albumin 4.1 g/dL (3.5-5.0) 12/20/18 06:41 Globulin 3.3 gm/dL (2.2-3.9) 12/20/18 06:41 Albumin/Globulin Ratio 1.2 (1.0-2.1) 12/20/18 06:41 Lipase 75 U/L (23-300) 12/20/18 06:41 Urine Color [place] (YELLOW) 12/20/18 06:41 Urine Clarity Cloudy (Clear) 12/20/18 06:41 Urine pH 5.0 (5.0-8.0) 12/20/18 06:41 Ur Specific [place] 1.027 (1.003-1.030) 12/20/18 06:41 Urine Protein 30 mg/dL (NEGATIVE) 12/20/18 06:41 Urine Glucose (UA) Neg mg/dL (NEGATIVE) 12/20/18 06:41 Urine Ketones 20 mg/dL (NEGATIVE) 12/20/18 06:41 Urine Blood Negative (NEGATIVE) 12/20/18 06:41 Urine Nitrate Negative (NEGATIVE) 12/20/18 06:41 Urine Bilirubin Negative (NEGATIVE) 12/20/18 06:41 Urine Urobilinogen 0.2-1.0 mg/dL (0.2-1.0) 12/20/18 06:41 Ur Leukocyte Esterase Mod [place]/uL (Negative) 12/20/18 06:41 Urine Microscopic WBC 5 /hpf (0-5) 12/20/18 06:41 Ur Squamous Epith Cells 3 /hpf (0-5) 12/20/18 06:41 Urine Bacteria Rare (<OCC) 12/20/18 06:41 Blood Type A POSITIVE 12/20/18 11:00 Blood Type Confirm A POSITIVE 12/20/18 13:41 Antibody Screen Negative 12/20/18 11:00 BBK History Checked No verified bt 12/20/18 11:00 - Hospital Course Hospital Course: 27 yo female with no significant PMH admitted because of abdominal pain associated with [place] and vomiting. Work ups was positive for acute appendicitis. Patient had lap appendectomy and did well post surgery. Patient tolerated food intake and able able to pass flatus. Patient is discharged in stable condition. Discharge Exam - Head Exam Head Exam: ATRAUMATIC, NORMAL INSPECTION, NORMOCEPHALIC - Eye Exam Eye Exam: absent: Scleral icterus - ENT Exam ENT Exam: Mucous Membranes Moist - Respiratory Exam Respiratory Exam: absent: Rales, Rhonchi, Wheezes, Respiratory Distress - Cardiovascular Exam Cardiovascular Exam: REGULAR RHYTHM, +S1, +S2 - GI/Abdominal Exam GI & Abdominal Exam: Soft, Tenderness (mild tenderness on site of surgery) - Rectal Exam Rectal Exam: Deferred - Neurological Exam Neurological exam: Alert, Oriented x3 - Psychiatric Exam Psychiatric exam: Normal Affect - Skin Skin Exam: Dry, Intact Discharge Plan - Follow Up Plan Condition: FAIR Disposition: HOME/ ROUTINE Additional Instructions: Please follow up with your surgeon Dr. Harvey in 2 weeks. Please call the office to make an appointment. Ok to resume a regular diet and any home medications. For pain, over the counter tylenol (650mg) as needed. Activity as tolerated. No heavy lifting greater than 15 lbs for the next 4 weeks. Ok to shower. No jacuzzis, baths, or pools for the next 2 weeks. You can remove the bandaids on 12/21/18. There is skin glue over your surgical incisions, do not pick that off. It will come off on its own. If symptoms acutely worsen, please return promptly to nearest emergency department.
[2018-12-21] MEDS ORDERED: Simethicone 80 mg Chewtab PO SCH (13:00)
== END 2018-12-21 13:32 | disposition home or self-care (01) | DRG 225 ==
LOC: H.ER 05:31 → H.ERHOLD 10:27 → H.MEDSURG1 14:01
PROC: 0DTJ4ZZ Resection of Appendix, Percutaneous Endoscopic Approach (ICD-10-PCS; principal; 2018-12-20 11:00)
DX: K35.80 Unspecified acute appendicitis (principal); Z90.49 Acquired absence of other specified parts of digestive tract